=== PATIENT | male | born 1950 ===

== ENCOUNTER 2021-08-27 20:43 | Inpatient (IN) | payer BC ==
--- OUTSIDE RECORDS SUMMARY | 2021-08-27 20:46 | XMS REPORT | Continuity of Care Document ---
:1950 Author Organization [facility] t Address [address] [place] [address] Care Team Providers Name Role Phone JENNYFER TOY Primary Care Physician Unavailable BARBY GARSIA Attending Clinician Unavailable AMERICA Attending Clinician Unavailable Safia Kennedy Attending Clinician Doctor Unassigned, Name Attending Clinician Unavailable Payers Payer Name Policy Type Policy Number Effective Date Expiration Date S ource Problems Condition Condition Condition Status Onset Resolution Last Treating Co mments Source Name Details Category Date Date Treatment Clinician Date Obesity Obesity Disease Active Overview: Univ ers 18 Formattin ity of 00:00: g of this [place] 00 note Medical might be Branch different from the original. 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 Utility Allergies, Adverse Reactions, Alerts Allergy Allergy Status Severity Reaction(s) Onset Inactive Treating Comm ents Source Name Type Date Date Clinician NO KNOWN Drug Active Univers ALLERGIE Class ity of S [place] [facility] [place] Social History Social Habit Start Date Stop Date Quantity Comments Source Exposure to Not sure [facility] SARS-CoV-2 (event) Medica l Branch Sex Assigned At [birth year] [facility] 00:00:00 00:00:00 Medical Branch Smoking Status Start Date Stop Date Source Unknown if ever smoked [facility] Medical [place] Medications Ordered Filled Start Stop Current Ordering Indication Dosage Frequency Signature Comments Components Source Medication Medication Date Date Medication? Clinician (SIG) Name Name tamsulosin 2020-06 Yes [id number] .4mg Take 1 Univers 0.4 mg 24 06-22 capsule by ity of hr capsule 00:00: mouth at [place] 00 bedtime. Medical Branch tamsulosin 2020-06 Yes [id number] .4mg Take 1 Univers 0.4 mg 24 06-22 capsule by ity of hr capsule 00:00: mouth at [place] 00 bedtime. Medical Branch tamsulosin Yes [id number] .4mg Take 1 Univers 0.4 mg 24 -05 12 capsule by ity of hr capsule 00:00: mouth [place] 00 daily. Medical Branch tamsulosin Yes [id number] .4mg Take 1 Univers 0.4 mg 24 10-21 capsule by ity of hr capsule 00:00: mouth [place] 00 daily. Medical Branch ACIPHEX Yes None Univers ORAL 2-08 Entered ity of 15:25: [place] [address] Medical Branch LEXAPRO Yes None Univers ORAL 2-08 Entered ity of 15:25: [place] [address] Medical Branch ALPRAZolam Yes .5mg Take 0.5 Uni vers 0.5 mg 2-08 mg by ity of tablet 15:25: mouth. [place] [address] Medical Branch desvenlafax Yes Take by Un ryan ine 2-08 mouth. ity of succinate 15:25: [place] 50 mg 24 hr 16 Medical tablet Branch lithium Yes 300mg Take 300 Unive rs carbonate 2-08 mg by ity of 300 mg 15:25: mouth. [place] [address] Medical Branch memantine Yes 10mg Take 10 mg Un ryan 10 mg 2-08 by mouth. ity of tablet 15:25: [place] [address] Medical Branch ACIPHEX Yes None Univers ORAL 2-08 Entered ity of 15:25: [place] [address] Medical Branch LEXAPRO Yes None Univers ORAL 2-08 Entered ity of 15:25: [place] [address] Medical Branch ALPRAZolam Yes .5mg Take 0.5 Uni vers 0.5 mg 2-08 mg by ity of tablet 15:25: mouth. [place] [address] Medical Branch desvenlafax Yes Take by Un ryan ine 2-08 mouth. ity of succinate 15:25: [place] 50 mg 24 hr 16 Medical tablet Branch lithium Yes 300mg Take 300 Unive rs carbonate 2-08 mg by ity of 300 mg 15:25: mouth. [facility] 16 Medical Branch memantine Yes 10mg Take 10 mg Un ryan 10 mg 2-08 by mouth. ity of tablet 15:25: 16 Medical Branch tamsulosin Yes [id number] .4mg Take 1 Univers 0.4 mg 24 2-08 capsule by ity of hr capsule 00:00: mouth at [place] 00 bedtime. Medical Branch tamsulosin Yes [id number] .4mg Take 1 Univers 0.4 mg 24 2-08 capsule by ity of hr capsule 00:00: mouth at [place] 00 bedtime. Medical Branch tamsulosin 2019- Yes [id number] .4mg Take 1 Univers 0.4 mg 24 2-28 01 capsule by ity of hr capsule 00:00: mouth [place] 00 daily. Medical Branch SYNTHROID 2019- Yes Univers 25 mcg 2-28 ity of tablet 00:00: 00 Medical Branch atorvastati 2019- Yes Univer s n 20 mg 2-28 ity of tablet 00:00: Medical Branch tamsulosin 2019- Yes [id number] .4mg Take 1 Univers 0.4 mg 24 2-28 01 capsule by ity of hr capsule 00:00: mouth [place] 00 daily. Medical Branch SYNTHROID 2019- Yes Univers 25 mcg 2-28 ity of tablet 00:00: Medical Branch atorvastati 2019- Yes Univer s n 20 mg 2-28 ity of tablet 00:00: 00 Medical Branch bisoprolol 2020- Yes Univers 5 mg tablet 1-20 ity of 00:00: Medical Branch bisoprolol 2019- Yes Univers 5 mg tablet 1-20 ity of 00:00: [place] 00 Medical Branch HYDROCODONE 2007-0 Yes 15 mL Oral Univers -ACETAMINOP 2-20 Q4HPRN ity of HEN 2.5-167 00:00: [place] MG/5 ML 00 Medical ORAL SOLN Branch HYDROCODONE 2007-0 Yes 15 mL Oral Univers -ACETAMINOP 2-20 Q4HPRN ity of HEN 2.5-167 00:00: [place] MG/5 ML 00 Medical ORAL SOLN Branch Vital Signs Vital Name Observation Time Observation Value Comments Source Systolic blood 2021-04-21 19:20:00 143 mm[Hg] Univer sity of pressure [facility] Diastolic blood 2021-04-21 19:20:00 88 mm[Hg] [facility] Heart rate 2021-04-21 19:20:00 68 /min [facility] Body temperature 2021-04-21 19:19:00 36 [facility] Respiratory rate 2021-04-21 19:19:00 16 /min [facility] Body weight 2021-04-21 19:19:00 108.954 kg [facility] BMI 2021-04-21 19:19:00 36.52 kg/m2 [facility] Oxygen saturation in 2021-04-21 19:19:00 99 /min [facility] Arterial blood by [facility] Pulse oximetry Branch Procedures Procedure Date / Time Performed Performing Clinician Sourc e POCT URINALYSIS AUTO 2021-04-21 19:22:00 Barby Garsia [facility] PATIENT QUESTIONNAIRE 2021-04-21 06:01:00 Doctor Unassigned, No [facility] Encounters Start End Encounter Admission Attending Care Care Encounter Source Date/Time Date/Time Type Type Clinicians Facility Department ID 2021-10-20 2021-10-20 Outpatient R ADY [facility] [id number] Univers 10:30:00 10:30:00 BARBY [id number] [facility] 2021-10-18 2021-10-18 Outpatient R AMERICA [facility] [id number] Univers 14:00:00 14:00:00 CAR [id number] [facility] 2021-04-21 2021-04-21 Office Gramm, [facility] [id number] Univers 12:54:40 13:39:26 Visit Barby QUEZADA [id number] ity of [facility] [id number] [place] [id number] Ne dical NAL 204 Branch BUILDING 2021-04-21 2021-04-21 Orders Doctor ARIE [id number] Univers 00:00:00 00:00:00 Only Unassigned, RED [id number] ity of [place] [facility] [id number] [place] [phone] [facility] 009 [place] Results Test Description Test Time Test Comments Results Result Comments Source POCT URINALYSIS, INSTRUMENT 2021-04-21 19:23:00 Test Item Value Reference Range Interpretation Comme nts POCT U SP GRAV (test code = 3255) 1.020 mg/dl 1.005-1.025 POCT PH U (test code = 3254) 7.0 mg/dl 5-8 POCT U LEUK EST (test code = 3263) Negative Negative - Negative POCT U NIT (test code = 3262) Negative Negative - Negative POCT U PROT (test code = 3259) Negative Negative - Negative POCT U GLU (test code = 3256) Negative Negative - Negative POCT U KETONE (test code = 3258) Negative Negative - Negative POCT U UROBILI (test code = 3260) 1.0 mg/dl 0.2-1 POCT U BILI (test code = 3261) Negative Negative - Negative POCT U BLD (test code = 3257) Negative Negative - Negative POCT U COLOR (test code = 3266) Yellow POCT U APPEAR (test code = 3267) Clear Lab Interpretation (test code = 75043-9) Normal [facility]
[2021-08-27] MEDS ORDERED: NA CHLORIDE 0.9% 2,000 ML ONE (21:24)
[2021-08-27 21:36] LABS: Absolute Lymphocytes (CBC) 0.2 K/uL (0.7-4.9); Hematocrit 41.3 % (39.6-49.0); Lymphocytes % 7.3 % (15.3-44.8); MPV 7.7 fL (7.6-11.3); RBC Red Blood Cell Count 4.59 M/uL (4.33-5.43)
[2021-08-27] MEDS ORDERED: NA CHLORIDE 0.9% 50 ML ONE (21:36)
[2021-08-27] MEDS ORDERED: VANCOMYCIN 1 GM/VIAL ONE (21:36)
[2021-08-27] MEDS ORDERED: CEFTRIAXONE 1000 MG/VIAL ONE (21:36)
[2021-08-27] MEDS ORDERED: NA CHLORIDE 0.9% 250 ML ONE (21:36)
[2021-08-27 21:39] LABS: Protime INR 1.52
[2021-08-27 21:45] LABS: Potassium 3.4 mmol/L (3.5-5.1)
[2021-08-27 21:59] LABS: Albumin 2.6 g/dL (3.4-5.0); Bilirubin Total 1.5 mg/dL (0.2-1.0); Potassium 3.4 mmol/L (3.5-5.1); Protein, Total 6.2 g/dL (6.4-8.2)
[2021-08-27 22:00] LABS: Platelet Estimate DECR; Platelets, Giant OCC
[2021-08-27 22:01] LABS: Blood Morphology Comment NOT SEEN (NOT SEEN)
--- NOTE | 2021-08-27 22:10 | RAD REPORT ---
EXAM DESCRIPTION: RAD - Chest Single View - 08/27/2021 9:45 pm CLINICAL HISTORY: CHEST PAIN Chest pain. COMPARISON: CHEST PA AND LAT 2 VIEW dated 10/03/2012; CHEST PA AND LAT 2 VIEW dated 09/28/2004 FINDINGS: Portable technique limits examination quality. Elevated right hemidiaphragm is noted without clear etiology. The lungs are underinflated which resul ts in vascular crowding. The heart is normal in size. No displaced fractures.
[2021-08-27] MEDS ORDERED: NA CHLORIDE 0.9% 1,000 ML ONE (22:51)
[2021-08-27] MEDS ORDERED: NOREPINEPHRINE 4mg/D5W 250mL 4 MG/250 ML BAG IV ONE (23:24)
[2021-08-28 00:06] LABS: SARS-COV-2 RT PCR NEGATIVE (NEGATIVE)
[2021-08-28] MEDS ORDERED: NOREPINEPHRINE 4mg/D5W 250mL 4 MG/250 ML BAG IV ONE ×4 (01:56→11:07)
[2021-08-28 03:45] LABS: Urine Blood Negative (Negative); Urine Glucose Negative (Negative); Urine Protein 1+ (Negative)
[2021-08-28] MEDS ORDERED: NOREPINEPHRINE 4 MG/4 ML VIAL ONE (03:56)
[2021-08-28] MEDS ORDERED: D5W 250 ML IV ONE (03:56)
[2021-08-28 03:59] LABS: Urine Bacteria 20-50 /HPF (NONE SEEN); Urine Mucus 3+ /HPF (NONE SEEN); Urine RBC <5 /HPF (NONE SEEN)
--- NOTE | 2021-08-28 04:16 | ER ---
Nurse's Notes [facility] Name: Bhargav Lim Age: 71 yrs Sex: Male : 1950 Arrival Date: 08/27/2021 Time: 20:48 Bed 4 Private MD: Diagnosis: Severe sepsis with septic shock Presentation: 08/27 21:09 Chief complaint: EMS states: EMS toned out for acute onset of stuttering of speech, ll3 states pt fell and hit head last night, denies LOC, c/o nausea and generalized weakness, denies V/D, states been unable to eat all day. Coronavirus screen: Vaccine status: Patient reports receiving the 2nd dose of the covid vaccine. At this time, the client does not indicate any symptoms associated with coronavirus-19. Ebola Screen: No symptoms or risks identified at this time. Initial Sepsis Screen: Does the patient meet any 2 criteria? RR > 20 per min. Systolic BP < 90 mmHg. HR > 90 bpm. Yes Does the patient have a suspected source of infection? No. Patient's initial sepsis screen is negative. Risk Assessment: Do you want to hurt yourself or someone else? Patient reports no desire to harm self or others. Onset of symptoms was August 27, 2021. Transition of care: patient was not received from another setting of care. 21:09 Method Of Arrival: EMS: [facility] 3 21:09 Acuity: DIANNA 3 ll3 21:29 Care prior to arrival: Medication(s) given: Normal saline infusion, 75 ml zofran 4 mg, ll3 Glucose check: 102 Oxygen administered. via nasal cannula. Triage Assessment: 21:29 General: Appears uncomfortable, Behavior is calm, cooperative. Pain: Denies pain. ll3 Neuro: Level of Consciousness is awake, alert, obeys commands, Oriented to person, place, time, situation, Metal Refiner are equal bilaterally Speech Stuttering . Facial symmetry appears normal, Reports weakness. Cardiovascular: Rhythm is sinus rhythm Chest pain is denied. Respiratory: Respiratory effort is even, unlabored, Respiratory pattern is tachypnea. GI: Reports intolerance of fluids, intolerance of food, nausea, Patient currently denies diarrhea, vomiting. Derm: Skin is diaphoretic, Skin temperature is warm. Historical: - Allergies: 21:29 No Known Allergies; ll3 - Home Meds: 21:36 atorvastatin 20 mg oral tab 1 tab once daily [Active]; memantine 28 mg oral CSpX ll3 [Active]; levothyroxine 25 mcg oral tab 1 tab every morning [Active]; Zyprexa 10 mg Oral tab 1 tab nightly [Active]; desvenlafaxine succinate 100 mg oral Tb24 1 tab once daily [Active]; bisoprolol fumarate 5 mg oral tab [Active]; tamsulosin 0.4 mg oral cap 1 cap nightly [Active]; Vyvanse 40 mg oral cap [Active]; pantoprazole 40 mg oral grps 1 tab [Active]; - Immunization history:: Client reports receiving the 2nd dose of the Covid vaccine. - Social history:: Smoking status: Patient reports the use of cigarette tobacco products, denies chronic smoking, but will smoke occasionally. Screenin:29 Abuse screen: Denies threats or abuse. Nutritional screening: No deficits noted. st1 Tuberculosis screening: No symptoms or risk factors identified. Fall Risk None identified. Fall in past 12 months (25 points). No secondary diagnosis (0 pts). IV access (20 points). Ambulatory Aid- None/Bed Rest/Nurse Assist (0 pts). Gait- Weak (10 pts.). Mental Status- Oriented to own ability (0 pts). Total Cazares Fall Scale indicates High Risk Score (45 or more points). Fall prevention measures have been instituted. Side Rails Up X 2 Placed Close to Nursing Station Frequent Obs/Assessments Occuring Family Present and informed to notify staff if the need to leave the bedside As available patient and family educated on Fall Prevention Program and Strategies. Assessment: 21:30 Reassessment: please see triage assessment. st1 22:45 Reassessment: Patient and/or family updated on plan of care and expected duration. Pain ll3 level reassessed. Patient is alert, oriented x 3, equal unlabored respirations, skin warm/dry/pink. Pt is awake and alert in bed talking with , blood pressure is 59/40, pt denies being lightheaded or dizzy, Dano Page at bedside discussing with pt and family need for central line. Patient denies pain at this time. 23:00 Reassessment: SERGE Herman at bedside inserting central line, tolerated well. ll3 08/28 10:24 Reassessment: 16fr villagomez was place by Huey BUSBY at 0700. monitors villagomez output and rosas notice increase blood clots and no urine output. villagomez was change out and about 200ml bloody urine output no visible blood clots. will continue to monitor. 20:24 General: Patient found confused and attemping to crawl out of bed yelling " someone tw5 help me." One IV had become dislodged. Patient reoriented and calmed. Patient placed in brief, monitoring wires reorganized for patient comfort. Patient repositioned in bed. . General: Behavior is cooperative, anxious, restless, Reports "I am sorry, I know where I am now, thank you for helping me. I know what I did wrong.". Pain: Pain currently is 0 out of 10 on a pain scale. 20:48 General: Attempted to Call Dr. Starkey. Left a message to have him call back. tw5 21:21 Neuro: Level of Consciousness is awake, confused, Oriented to person, place. GI: Stools tw5 are reported to be loose, Patient confused and reaching over. Found with feces on his hands. Patient was cleaned up by two RNs. Patient reoriented, and repositioned for comfort. Complete linen changed. 21:45 General: Attempted to Dr. Starkey again. Left another message. tw5 22:15 General: Patient appears pale and clammy. Patient reports "I just had another bowel tw5 movement, and I am feeling nauseous.". 23:11 Derm: Skin is mottled. tw5 23:26 General: Patient had another bowel movement. Feces all over monitoring cords. Patient tw5 cleaned up. Linen changed. Patient reports nausea and diarrhea. . 08/29 00:15 General: Attempted to call Dr. Ricks . tw5 00:30 General: Spoke to Gutierrez on the phone updated provider of patients status. Provider tw5 stated he would like the patient intubated if Dr. Greene the ER doctor would be willing to intubate the patient. Further instructions will be provided in [facility].. 00:31 General: Patient yelling out ' SOMEONE HELP ME, I FEEL LIKE I AM GOING TO "!. tw5 00:53 Respiratory: Airway is patent Trachea midline Respiratory effort is labored. tw5 00:57 Neuro: Level of Consciousness is confused, Oriented to. tw5 01:04 General: Spoke to Provider- Dr. Greene suggested that intubation wasn't needed at this tw5 time. ABG obtained. Reading relayed to Dr. Whitley. . 01:36 General: Behavior is agitated, anxious, restless, Patient attemping to crawl out of tw5 bed. Ciaio Lumite Injector at the bedside assisting with patient. . 02:01 General: Juliette called again. nursing staff strongly suggested that she come up here to tw5 see her . . 02:54 General: Behavior is agitated, anxious, restless. Pain: Complains of pain in abdomen tw5 Pain currently is 8 out of 10 on a pain scale. 03:00 General: Juliette the is at the bedside she stated " I just want him to be tw5 comfortable." She further stated she didn't want him to be intubated or for CPR. . 04:11 General: Behavior is agitated, anxious, restless, at the bedside.. Cardiovascular: tw5 Rhythm is sinus tachycardia. Respiratory: Respiratory effort is labored. 05:32 General: Behavior is agitated, anxious, restless, Patient cleaned of incontinence. tw5 Verbal reassurance given to and patient. . 05:32 Neuro: Level of Consciousness is confused, Oriented to none. tw5 06:44 General: Behavior is agitated, anxious, restless, uncooperative, Patient cleaned of tw5 incontinence. Repositioned. 10:06 Reassessment: pt spouse requested no antibiotics, spoke with Primary doc and decided on rosas DNR and hospice. spoke with Dr. Strong to decrease Sodium Bicarb to 100ml/hr, haldol 4mg Q\\T\\H PRN. stop nor-epi and vasopressin. Vital Signs: 08/27 21:09 BP 76 / 55; Pulse 100; Resp 24; Temp 99.4(O); Pulse Ox 92% on R/A; Weight 101.15 kg ll3 (R); Height 5 ft. 10 in. (177.80 cm) (R); Pain 0/10; 21:15 BP 68 / 36; Pulse 93; Resp 27; Pulse Ox 93% on 2 lpm NC; ll3 21:30 BP 59 / 50; Pulse 87; Resp 28; Pulse Ox 91% on 2 lpm NC; ll3 21:45 BP 60 / 46; Pulse 87; Resp 26; Pulse Ox 95% on 2 lpm NC; ll3 22:00 BP 60 / 48; Pulse 90; Resp 28; Pulse Ox 96% on 2 lpm NC; ll3 22:15 BP 54 / 41; Pulse 88; Resp 22; Pulse Ox 97% on 2 lpm NC; ll3 22:30 BP 48 / 37; Pulse 87; Resp 23; Pulse Ox 96% on 2 lpm NC; ll3 22:45 BP 59 / 40; Pulse 85; Resp 23; Pulse Ox 96% on 2 lpm NC; ll3 23:00 BP 57 / 36; Pulse 89; Resp 26; Pulse Ox 96% on 2 lpm NC; ll3 23:15 BP 59 / 46; Pulse 85; Resp 26; Pulse Ox 97% on 2 lpm NC; ll3 23:30 BP 63 / 49; Pulse 84; Resp 25; Pulse Ox 98% on 2 lpm NC; ll3 23:45 BP 91 / 73; Pulse 74; Resp 25; Pulse Ox 99% on 2 lpm NC; ll3 08/28 00:00 BP 59 / 34; Pulse 66; Resp 21; Pulse Ox 98% on 2 lpm NC; ll3 00:15 BP 74 / 49; Pulse 87; Resp 25; Pulse Ox 98% on 2 lpm NC; ll3 00:30 BP 75 / 61; Pulse 90; Resp 27; Pulse Ox 98% on 2 lpm NC; ll3 00:45 BP 79 / 66; Pulse 86; Resp 23; Pulse Ox 99% on 2 lpm NC; ll3 01:00 BP 82 / 56; Pulse 89; Resp 25; Pulse Ox 99% on 2 lpm NC; ll3 01:20 BP 101 / 57; Pulse 87; Resp 26; Pulse Ox 98% on 2 lpm NC; ll3 08:01 BP 95 / 76; Pulse 88; Resp 18; Pulse Ox 97% on 4 lpm NC; rosas 08:28 BP 95 / 83; Pulse 86; Resp 19; Pulse Ox 96% on 4 lpm NC; rosas 08:50 BP 96 / 80; Pulse 84; Resp 18; Pulse Ox 97% on 4 lpm NC; rosas 09:50 BP 115 / 83; Pulse 78; Resp 19; Pulse Ox 96% on 4 lpm NC; rosas 10:34 BP 106 / 89; Pulse 90; Resp 19; Pulse Ox 97% on 4 lpm NC; rosas 11:01 BP 96 / 51; Pulse 90; Resp 20; Pulse Ox 94% on 4 lpm NC; rosas 12:00 BP 77 / 62; Pulse 92; Resp 20; Pulse Ox 94% on 4 lpm NC; rosas 13:00 BP 79 / 65; Pulse 90; Resp 20; Pulse Ox 96% on 4 lpm NC; rosas 15:03 BP 103 / 66; Pulse 88; Resp 22; Pulse Ox 92% on 4 lpm NC; rosas 16:23 BP 107 / 75; Pulse 88; Resp 19; Pulse Ox 98% on 3 lpm NC; rosas 18:08 BP 76 / 54; Pulse 79; Resp 20; Pulse Ox 99% on 3 lpm NC; rosas 18:09 BP 82 / 66; rosas 20:24 BP 137 / 96; Pulse 95; Resp 33; Pulse Ox 94% on 4 lpm NC; tw5 20:33 BP 104 / 66; Pulse 84; Resp 33; Pulse Ox 100% on R/A; tw5 20:49 BP 94 / 62; tw5 20:53 BP 94 / 92; Pulse 82; Resp 34; Pulse Ox 96% on 3 lpm NC; tw5 21:21 BP 73 / 58; Pulse 82; Resp 18; tw5 21:38 BP 73 / 58; tw5 22:16 BP 98 / 65; Pulse 81; Pulse Ox 86% on 3 lpm NC; tw5 23:26 BP 87 / 64; Pulse 69; Resp 24; Pulse Ox 97% on 15% Non-rebreather mask; tw5 23:28 BP 87 / 64; tw5 23:56 BP 48 / 34; tw5 23:57 BP 48 / 34; tw5 08/29 00:14 BP 119 / 94; Pulse 77; tw5 00:53 BP 66 / 25; Pulse 67; Resp 26; Pulse Ox 92% on 6 lpm NC; tw5 01:36 BP 109 / 91; Pulse 123; tw5 01:45 BP 99 / 87; Pulse 128; tw5 02:33 BP 152 / 121; Pulse 137; Resp 24; Pulse Ox 92% on 6 lpm NC; tw5 02:36 BP 152 / 121; tw5 02:55 BP 157 / 115; Pulse 143; Resp 26; Pulse Ox 96% on 96% Venturi mask; tw5 03:35 BP 170 / 129; tw5 03:35 BP 170 / 129; tw5 04:11 BP 149 / 98; Pulse 130; Resp 28; Pulse Ox 95% on 50% Venturi mask; tw5 05:32 BP 153 / 91; Pulse 138; Resp 30; Pulse Ox 95% on 50% Venturi mask; tw5 06:44 BP 146 / 79; Pulse 141; Resp 30; Pulse Ox 92% on 50% Venturi mask; tw5 07:00 BP 157 / 76; Pulse 137; Resp 22; Pulse Ox 97% on Venturi mask; rosas 07:40 BP 164 / 101; Pulse 135; Resp 22; Pulse Ox 98% on Venturi mask; rosas 08:20 BP 98 / 74; Pulse 114; Resp 20; Pulse Ox 97% on Venturi mask; rosas 08:20 BP 133 / 74; Pulse 130; Resp 22; Pulse Ox 98% on Venturi mask; rosas 09:21 BP 145 / 100; Pulse 124; Resp 20; Pulse Ox 98% on Venturi mask; rosas 10:20 BP 137 / 87; Pulse 132; Resp 22; Pulse Ox 95% ; rosas 11:00 BP 176 / 118; Pulse 135; Resp 20; Pulse Ox 96% on Venturi mask; rosas 12:00 BP 123 / 88; Pulse 122; Resp 20; Pulse Ox 96% on Venturi mask; rosas 08/27 21:09 Body Mass Index 32.00 (101.15 kg, 177.80 cm) ll3 08/28 22:16 Upped NC to 5 L, Oxygen reached 90 tw5 08/29 00:14 Unable to obtain an accurate pulse ox. Derrick WATT at the bedside assisting. tw5 ED Course: 08/27 20:48 Patient arrived in ED. mw2 20:54 Maikol Guillen MD is Attending Physician. kdr 21:17 Tammy Westbrook, QI is Primary Nurse. st1 21:17 CBC with Automated Diff Sent. st1 21:17 Basic Metabolic Panel Sent. st1 21:17 Troponin High Sensitivity Sent. st1 21:17 Basic Metabolic Panel Sent. st1 21:17 CBC with Diff Sent. st1 21:17 Troponin HS Sent. st1 21:18 Triage completed. ll3 21:18 Lactate Sent. st1 21:18 CMP Sent. st1 21:18 Inserted saline lock: 20 gauge in right forearm, using aseptic technique. Blood st1 collected. 21:29 Maintain EMS IV. Dressing intact. Good blood return noted. Site clean \\T\\ dry. Gauge \\T\\ st 1 site: 18 ga left hand. 21:29 Arm band placed on right wrist. Patient placed in an exam room, on a stretcher, on ll3 oxygen, on pvc monitor, on pulse oximetry. EKG completed in triage. Results shown to MD. 21:30 No provider procedures requiring assistance completed. st1 21:30 Blood Culture Adult (2) Sent. st1 21:30 CMP Sent. st1 21:30 Patient has correct armband on for positive identification. Placed in gown. Bed in low st1 position. Call light in reach. Side rails up X2. monitor technician on. Pulse ox on. NIBP on. Door closed. Verbal reassurance given. Head of bed elevated. 21:31 Lactate Sent. st1 21:31 Protime (+inr) Sent. st1 21:31 Ptt, Activated Sent. st1 21:31 XRAY Chest (1 view) Sent. st1 21:45 XRAY Chest (1 view) In Process Unspecified. EDMS 23:23 Assisted provider with central line placement. Dressed with Tegaderm, Patient tolerated ll3 well. Initial lab(s) drawn, by ED staff, sent to lab. First set of blood cultures drawn Second set of blood cultures drawn EKG done, COVID swab sent to lab. 08/28 02:20 Head C Spine Cap Wo Con In Process Unspecified. EDMS 04:15 Prince Cristobal MD is Hospitalizing Provider. kdr 05:23 Isaac Starkey MD is Hospitalizing Provider. kdr 08/29 00:58 Primary Nurse role handed off by Tammy Westbrook RN tw5 00:58 Gina Abdalla is Primary Nurse. tw5 05:32 Wound care: to abrasion, located on left elbow was dressed with Neosporin, band aid. tw5 Administered Medications: 08/27 21:00 Drug: NS 0.9% (30 ml/kg) 30 ml/kg Route: IV; Rate: bolus; Site: right antecubital; ll3 08/28 00:45 Follow up: IV Status: Completed infusion; IV Intake: 3034.5ml st1 08/27 21:35 Drug: Rocephin - (cefTRIAXone) 1 grams Route: IVPB; Infused Over: 30 mins; Site: left st1 hand; 22:00 Follow up: Response: No adverse reaction; IV Intake: 50ml st1 08/28 08:49 Follow up: IV Status: Completed infusion 08/27 21:42 Drug: vancoMYCIN 1 grams Route: IVPB; Infused Over: 2 hrs; Site: right forearm; st1 23:00 Follow up: Response: No adverse reaction; IV Intake: 250ml st1 08/28 08:49 Follow up: IV Status: Completed infusion 08/27 23:27 Drug: Levophed (norepinephrine) (4 mg/250 mL D5W 4 mcg/min {Note: right groin central st1 line .} Route: IV; Rate: calculated rate; Site: right femoral; 08/28 08:49 Follow up: IV Status: Completed infusion 04:28 Drug: Flagyl (metroNIDAZOLE) 500 mg Volume: 100 ml; Route: IVPB; Rate: 200 ml/hr; al4 Infused Over: 30 mins; Site: left hand; 04:58 Follow up: Response: No adverse reaction; IV Status: Completed infusion; IV Intake: al4 100ml 07:51 Follow up: IV Status: Completed infusion 08:01 Drug: NS 0.9% 1000 ml Route: IV; Rate: 200 ml/hr; Site: Other; 20:28 Follow up: Response: No adverse reaction; IV Status: Completed infusion; IV Intake: tw5 1000ml 08:48 Drug: Norepinephrine (4 mg/250 mL D5W) 4 mcg/min Route: IV; Rate: calculated rate; Site: Other; 11:13 Follow up: IV Status: Completed infusion 23:56 Follow up: Rate change 6 mcg/min tw5 11:11 Drug: Norepinephrine (4 mg/250 mL D5W) 4 mcg/min Route: IV; Rate: calculated rate; Site: Other; 20:28 Follow up: IV Status: Order to discontinue infusion; No currently running tw5 21:38 Follow up: BP 73 / 58; Rate change 2 mcg/min tw5 23:28 Follow up: BP 87 / 64; Rate change 4 mcg/min tw5 08/29 00:52 Follow up: Rate change 10 mcg/min tw5 03:35 Follow up: BP 170 / 129; placed on hold tw08/28 14:04 Drug: Vasopressin 0.02 units/min Route: IV; Rate: calculated rate; Site: Other; 20:27 Follow up: Rate change calculated rate; Infusion on hold due to vitals 20:49 Follow up: BP 94 / 62; Rate change 0.04 units/min 5 20:49 Follow up: Rate change 0.02 units/min 23:56 Follow up: BP 48 / 34; Rate change 0.04 units/min 20 00:52 Follow up: Rate change 0.05 units/min 02:36 Follow up: BP 152 / 121; currently on hold 03:35 Follow up: BP 170 / 129; Placed on hold 00:49 Drug: SOLU-Medrol (methylPrednisoLONE) 200 mg Route: IVP; Site: left hand; 03:35 Follow up: Response: No adverse reaction Point of Care Testing: Blood Glucose: 08/27 21:29 Blood Glucose: 107 mg/dL; ll3 Ranges: Intake: 22:00 IV: 50ml; Total: 50ml. st1 23:00 IV: 250ml; Total: 300ml. st1 08/28 00:45 IV: 3035ml; Total: 3335ml. st1 04:58 IV: 100ml; Total: 3435ml. al4 20:28 IV: 1000ml; Total: 4435ml. Outcome: 04:16 Decision to Hospitalize by Provider. kdr 08/29 15:48 Patient left the ED. ic1 Signatures: Dispatcher [employer] EDMS Maikol Guillen MD MD [facility] Franky Nesbitt Gina Gottlieb tw5 Huey Macedo RN RN ll3 Jethro Burgos al4 Laura Garcia RN RN ha Creggett, Iesha, RN RN ic1 Tammy Westbrook RN RN st1 Corrections: (The following items were deleted from the chart) 08/28 01:32 08/27 22:45 BP 59 / 40; Pulse 85bpm; Resp 23bpm; Pulse Ox 23% 2 lpm Nasal Cannula; ll3 ll3 08/28 04:58 04:58 Response: No adverse reaction; IV Status: Completed infusion al4 al4 08/29 05:34 05:32 Neuro: Level of Consciousness is confused, Oriented to Appropriate for age tw5 tw5 09:01 07:00 BP 157 / 76; Pulse 137bpm; Resp 22bpm; Pulse Ox 97% Non-rebreather mask; [facility] 09: 07:40 BP 164 / 101; Pulse 135bpm; Resp 22bpm; Pulse Ox 98% Non-rebreather mask; [facility] 09: 08:20 BP 133 / 74; Pulse 130bpm; Resp 22bpm; Pulse Ox 98% Non-rebreather mask; [facility] 09: 08:20 BP 98 / 74; Pulse 114bpm; Resp 20bpm; Pulse Ox 97% Non-rebreather mask; [facility]
--- NOTE | 2021-08-28 04:16 | EDPHYS ---
Physician Documentation [facility] Name: Bhargav Lim Age: 71 yrs Sex: Male : 1950 Arrival Date: 08/27/2021 Time: 20:48 Bed 4 Private MD: ED Physician Maikol Guillen HPI: 08/28 06:00 This 71 yrs old Male presents to ER via EMS with complaints of General Weakness. kdr 06:00 Altered mental status. kdr 06:03 Severity of symptoms: At their worst the symptoms were severe in the emergency kdr department the symptoms are unchanged. The patient has not experienced similar symptoms in the past. It is unknown whether or not the patient has recently seen a physician. Patient's states that she noted acute onset of change in speech pattern. She indicates that he is stuttering which he does not normally do. She also indicated that he fell and hit his head last night. She denies loss of consciousness. Is also reported to be generally nauseated and weak. Patient denies change in speech but states that he has been feeling poorly for the past day or so. He does recollect hitting his head but denies LOC.. Historical: - Allergies: 08/27 21:29 No Known Allergies; ll3 - Home Meds: 21:36 atorvastatin 20 mg oral tab 1 tab once daily [Active]; memantine 28 mg oral CSpX ll3 [Active]; levothyroxine 25 mcg oral tab 1 tab every morning [Active]; Zyprexa 10 mg Oral tab 1 tab nightly [Active]; desvenlafaxine succinate 100 mg oral Tb24 1 tab once daily [Active]; bisoprolol fumarate 5 mg oral tab [Active]; tamsulosin 0.4 mg oral cap 1 cap nightly [Active]; Vyvanse 40 mg oral cap [Active]; pantoprazole 40 mg oral grps 1 tab [Active]; - Immunization history:: Client reports receiving the 2nd dose of the Covid vaccine. - Social history:: Smoking status: Patient reports the use of cigarette tobacco products, denies chronic smoking, but will smoke occasionally. ROS: 08/28 06:03 Constitutional: Patient is a poor historian Eyes: Negative for injury, pain, redness, kdr and discharge, Neck: Negative for injury, pain, and swelling. Exam: 08/27 21:09 ECG was reviewed by the Attending Physician. kdr 08/28 06:03 Constitutional: This is a well developed, well nourished patient who is so,nolent, and kdr in mild distress. Head/Face: Normocephalic, atraumatic. Eyes: Pupils equal round and reactive to light, extra-ocular motions intact. Lids and lashes normal. Conjunctiva and sclera are non-icteric and not injected. Cornea within normal limits. Periorbital areas with no swelling, redness, or edema. Neck: Trachea midline, no thyromegaly or masses palpated, and no cervical lymphadenopathy. Supple, full range of motion without nuchal rigidity, or vertebral point tenderness. No Meningismus. Chest/axilla: Normal chest wall appearance and motion. Nontender with no deformity. No lesions are appreciated. Cardiovascular: Regular rate and rhythm with a normal S1 and S2. No gallops, murmurs, or rubs. Normal PMI, no JVD. No pulse deficits. Respiratory: Lungs have equal breath sounds bilaterally, clear to auscultation and percussion. No rales, rhonchi or wheezes noted. No increased work of breathing, no retractions or nasal flaring. Back: No spinal tenderness. No costovertebral tenderness. Full range of motion. Skin: Warm, dry with normal turgor. Normal color with no rashes, no lesions, and no evidence of cellulitis. MS/ Extremity: Pulses equal, no cyanosis. Neurovascular intact. Full, normal range of motion. Respiratory: Respiratory: the patient does not display signs of respiratory distress, Breath sounds: rales, that are mild, are scattered, stridor, is not appreciated, wheezing: is not appreciated. 06:03 Neuro: Orientation: Slow to respond but responds appropriately. kdr Vital Signs: 08/27 21:09 BP 76 / 55; Pulse 100; Resp 24; Temp 99.4(O); Pulse Ox 92% on R/A; Weight 101.15 kg ll3 (R); Height 5 ft. 10 in. (177.80 cm) (R); Pain 0/10; 21:15 BP 68 / 36; Pulse 93; Resp 27; Pulse Ox 93% on 2 lpm NC; ll3 21:30 BP 59 / 50; Pulse 87; Resp 28; Pulse Ox 91% on 2 lpm NC; ll3 21:45 BP 60 / 46; Pulse 87; Resp 26; Pulse Ox 95% on 2 lpm NC; ll3 22:00 BP 60 / 48; Pulse 90; Resp 28; Pulse Ox 96% on 2 lpm NC; ll3 22:15 BP 54 / 41; Pulse 88; Resp 22; Pulse Ox 97% on 2 lpm NC; ll3 22:30 BP 48 / 37; Pulse 87; Resp 23; Pulse Ox 96% on 2 lpm NC; ll3 22:45 BP 59 / 40; Pulse 85; Resp 23; Pulse Ox 96% on 2 lpm NC; ll3 23:00 BP 57 / 36; Pulse 89; Resp 26; Pulse Ox 96% on 2 lpm NC; ll3 23:15 BP 59 / 46; Pulse 85; Resp 26; Pulse Ox 97% on 2 lpm NC; ll3 23:30 BP 63 / 49; Pulse 84; Resp 25; Pulse Ox 98% on 2 lpm NC; ll3 23:45 BP 91 / 73; Pulse 74; Resp 25; Pulse Ox 99% on 2 lpm NC; ll3 03/19 00:00 BP 59 / 34; Pulse 66; Resp 21; Pulse Ox 98% on 2 lpm NC; ll3 00:15 BP 74 / 49; Pulse 87; Resp 25; Pulse Ox 98% on 2 lpm NC; ll3 00:30 BP 75 / 61; Pulse 90; Resp 27; Pulse Ox 98% on 2 lpm NC; ll3 00:45 BP 79 / 66; Pulse 86; Resp 23; Pulse Ox 99% on 2 lpm NC; ll3 01:00 BP 82 / 56; Pulse 89; Resp 25; Pulse Ox 99% on 2 lpm NC; ll3 01:20 BP 101 / 57; Pulse 87; Resp 26; Pulse Ox 98% on 2 lpm NC; ll3 08:01 BP 95 / 76; Pulse 88; Resp 18; Pulse Ox 97% on 4 lpm NC; rosas 08:28 BP 95 / 83; Pulse 86; Resp 19; Pulse Ox 96% on 4 lpm NC; rosas 08:50 BP 96 / 80; Pulse 84; Resp 18; Pulse Ox 97% on 4 lpm NC; rosas 09:50 BP 115 / 83; Pulse 78; Resp 19; Pulse Ox 96% on 4 lpm NC; rosas 10:34 BP 106 / 89; Pulse 90; Resp 19; Pulse Ox 97% on 4 lpm NC; rosas 11:01 BP 96 / 51; Pulse 90; Resp 20; Pulse Ox 94% on 4 lpm NC; rosas 12:00 BP 77 / 62; Pulse 92; Resp 20; Pulse Ox 94% on 4 lpm NC; rosas 13:00 BP 79 / 65; Pulse 90; Resp 20; Pulse Ox 96% on 4 lpm NC; rosas 15:03 BP 103 / 66; Pulse 88; Resp 22; Pulse Ox 92% on 4 lpm NC; rosas 16:23 BP 107 / 75; Pulse 88; Resp 19; Pulse Ox 98% on 3 lpm NC; rosas 18:08 BP 76 / 54; Pulse 79; Resp 20; Pulse Ox 99% on 3 lpm NC; rosas 18:09 BP 82 / 66; rosas 20:24 BP 137 / 96; Pulse 95; Resp 33; Pulse Ox 94% on 4 lpm NC; tw5 20:33 BP 104 / 66; Pulse 84; Resp 33; Pulse Ox 100% on R/A; tw5 20:49 BP 94 / 62; tw5 20:53 BP 94 / 92; Pulse 82; Resp 34; Pulse Ox 96% on 3 lpm NC; tw5 21:21 BP 73 / 58; Pulse 82; Resp 18; tw5 21:38 BP 73 / 58; tw5 22:16 BP 98 / 65; Pulse 81; Pulse Ox 86% on 3 lpm NC; tw5 23:26 BP 87 / 64; Pulse 69; Resp 24; Pulse Ox 97% on 15% Non-rebreather mask; tw5 23:28 BP 87 / 64; tw5 23:56 BP 48 / 34; tw5 23:57 BP 48 / 34; tw5 08/29 00:14 BP 119 / 94; Pulse 77; tw5 00:53 BP 66 / 25; Pulse 67; Resp 26; Pulse Ox 92% on 6 lpm NC; tw5 01:36 BP 109 / 91; Pulse 123; tw5 01:45 BP 99 / 87; Pulse 128; tw5 02:33 BP 152 / 121; Pulse 137; Resp 24; Pulse Ox 92% on 6 lpm NC; tw5 02:36 BP 152 / 121; tw5 02:55 BP 157 / 115; Pulse 143; Resp 26; Pulse Ox 96% on 96% Venturi mask; tw5 03:35 BP 170 / 129; tw5 03:35 BP 170 / 129; tw5 04:11 BP 149 / 98; Pulse 130; Resp 28; Pulse Ox 95% on 50% Venturi mask; tw5 05:32 BP 153 / 91; Pulse 138; Resp 30; Pulse Ox 95% on 50% Venturi mask; tw5 06:44 BP 146 / 79; Pulse 141; Resp 30; Pulse Ox 92% on 50% Venturi mask; tw5 07:00 BP 157 / 76; Pulse 137; Resp 22; Pulse Ox 97% on Venturi mask; rosas 07:40 BP 164 / 101; Pulse 135; Resp 22; Pulse Ox 98% on Venturi mask; rosas 08:20 BP 98 / 74; Pulse 114; Resp 20; Pulse Ox 97% on Venturi mask; rosas 08:20 BP 133 / 74; Pulse 130; Resp 22; Pulse Ox 98% on Venturi mask; rosas 09:21 BP 145 / 100; Pulse 124; Resp 20; Pulse Ox 98% on Venturi mask; rosas 10:20 BP 137 / 87; Pulse 132; Resp 22; Pulse Ox 95% ; rosas 11:00 BP 176 / 118; Pulse 135; Resp 20; Pulse Ox 96% on Venturi mask; rosas 12:00 BP 123 / 88; Pulse 122; Resp 20; Pulse Ox 96% on Venturi mask; rosas 08/27 21:09 Body Mass Index 32.00 (101.15 kg, 177.80 cm) ll3 08/28 22:16 Upped NC to 5 L, Oxygen reached 90 tw5 08/29 00:14 Unable to obtain an accurate pulse ox. Derrick WATT at the bedside assisting. tw5 Procedures: 08/27 23:00 Central Line: the site was prepped with Betadine, in sterile fashion, a triple lumen cp catheter was inserted, in the right femoral vein, in 1 attempts. placement was verified, by blood return, the site was dressed with using sterile technique, the patient tolerated the procedure, well. MDM: 08/28 00:19 ED course: Patient's blood pressure is slightly improved with a systolic now product kdr 74. His mental status is much improved. Patient awake alert and responding appropriately. Speech is improved. His is at bedside feels that he is much better than he was high on admission. It is currently at his max of 30 mics. Will consider alternate pressure support. Still awaiting CT. 04:16 Patient medically screened. kdr 04:16 Counseling: I had a detailed discussion with the patient and/or guardian regarding: the kdr historical points, exam findings, and any diagnostic results supporting the discharge/admit diagnosis, lab results. Physician consultation: Heladio Landry MD was called at 04:00, regarding admission, consult, patient's condition, and will see patient in unit, later today. 06:03 Data reviewed: vital signs, nurses notes, lab test result(s), radiologic studies. ED kdr course: The patient responded well to the interventions given. His mental status improved and no other complaints during his stay in the ED. 08/27 21:11 Order name: Basic Metabolic Panel [facility] 08/27 21:11 Order name: CBC with Diff kdr 08/27 21:11 Order name: Troponin HS kdr 08/27 21:12 Order name: Basic Metabolic Panel; Complete Time: 21:47 EDMS 08/27 21:12 Order name: Troponin High Sensitivity; Complete Time: 00:17 EDMS 08/27 21:12 Order name: CBC with Automated Diff; Complete Time: 00:17 EDMS 08/27 21:17 Order name: Blood Culture Adult (2) kdr 08/27 21:17 Order name: CMP; Complete Time: 23:00 [facility] 08/27 21:17 Order name: Lactate; Complete Time: 22:59 [facility] 08/27 21:17 Order name: Protime (+inr); Complete Time: 00:17 [facility] 08/27 21:17 Order name: Ptt, Activated; Complete Time: 00:17 kdr 08/27 21:36 Order name: Glucose, Ancillary Testing; Complete Time: 00:17 EDMS 08/27 21:38 Order name: Manual Differential; Complete Time: 00:17 EDMS 08/27 21:57 Order name: COVID-19/FLU A+B (Document "Date of Onset" if Symptomatic); Complete Time: la1 00:17 08/27 21:11 Order name: XRAY Chest (1 view); Complete Time: 00:17 [facility] 08/28 01:01 Order name: Lactate Sepsis 2 HR Follow-up; Complete Time: 01:58 EDMS 08/28 02:19 Order name: Head C Spine Cap Wo Con EDMS 08/28 02:33 Order name: Urine Microscopic Only; Complete Time: 04:01 la1 08/28 03:45 Order name: Urine Dipstick-Ancillary; Complete Time: 04:01 EDMS 08/28 04:01 Order name: Urine Culture EDMS 08/28 08:36 Order name: Gram Stain--Aerobic Bottle EDMS 08/28 08:36 Order name: Gram Stain--Anaerobic Bottle EDMS 08/28 08:37 Order name: Gram Stain--Aerobic Bottle EDMS 08/28 08:54 Order name: US Abdomen Complete eb 08/29 00:49 Order name: ABG Arterial Blood Gas EDMS 08/29 05:16 Order name: CBC with Automated Diff EDMS 08/29 05:30 Order name: Comprehensive Metabolic Panel EDMS 08/29 09:41 Order name: Manual Differential EDMS 08/27 21:11 Order name: EKG; Complete Time: 21:12 kdr 08/27 21:11 Order name: Cardiac monitoring; Complete Time: 21:17 kdr 08/27 21:11 Order name: EKG - Nurse/Tech; Complete Time: 21:17 kdr 08/27 21:11 Order name: IV Saline Lock; Complete Time: 21:17 kdr 08/27 21:11 Order name: Labs collected and sent; Complete Time: 21:17 kdr 08/27 21:11 Order name: O2 Per Protocol; Complete Time: 21:17 kdr 08/27 21:11 Order name: O2 Sat Monitoring; Complete Time: 21:17 kdr 08/27 21:17 Order name: Accucheck; Complete Time: 21:25 kdr 08/27 21:17 Order name: IV Saline Lock - Large Bore; Complete Time: 21:18 kdr 08/28 07:00 Order name: Allen; Complete Time: 07:18 ll3 08/28 11:51 Order name: US; Complete Time: 12:57 EDMS 08/29 09:29 Order name: RAD EDNY EC/18 21:09 Rate is 99 beats/min. Rhythm is regular, Normal Sinus Rhythm with No ectopy. QRS [place] kdr is Normal. [place] interval is normal. QRS interval is normal. QT interval is normal. Clinical impression: Normal ECG. Administered Medications: 21:00 Drug: NS 0.9% (30 ml/kg) 30 ml/kg Route: IV; Rate: bolus; Site: right antecubital; ll3 08/28 00:45 Follow up: IV Status: Completed infusion; IV Intake: 3034.5ml st1 08/27 21:35 Drug: Rocephin - (cefTRIAXone) 1 grams Route: IVPB; Infused Over: 30 mins; Site: left st1 hand; 22:00 Follow up: Response: No adverse reaction; IV Intake: 50ml st1 08/28 08:49 Follow up: IV Status: Completed infusion 08/27 21:42 Drug: vancoMYCIN 1 grams Route: IVPB; Infused Over: 2 hrs; Site: right forearm; st1 23:00 Follow up: Response: No adverse reaction; IV Intake: 250ml st1 08/28 08:49 Follow up: IV Status: Completed infusion 08/27 23:27 Drug: Levophed (norepinephrine) (4 mg/250 mL D5W 4 mcg/min {Note: right groin central st1 line .} Route: IV; Rate: calculated rate; Site: right femoral; 08/28 08:49 Follow up: IV Status: Completed infusion 04:28 Drug: Flagyl (metroNIDAZOLE) 500 mg Volume: 100 ml; Route: IVPB; Rate: 200 ml/hr; al4 Infused Over: 30 mins; Site: left hand; 04:58 Follow up: Response: No adverse reaction; IV Status: Completed infusion; IV Intake: al4 100ml 07:51 Follow up: IV Status: Completed infusion 08:01 Drug: NS 0.9% 1000 ml Route: IV; Rate: 200 ml/hr; Site: Other; 20:28 Follow up: Response: No adverse reaction; IV Status: Completed infusion; IV Intake: tw5 1000ml 08:48 Drug: Norepinephrine (4 mg/250 mL D5W) 4 mcg/min Route: IV; Rate: calculated rate; Site: Other; 11:13 Follow up: IV Status: Completed infusion rosas 23:56 Follow up: Rate change 6 mcg/min tw5 11:11 Drug: Norepinephrine (4 mg/250 mL D5W) 4 mcg/min Route: IV; Rate: calculated rate; Site: Other; 20:28 Follow up: IV Status: Order to discontinue infusion; No currently running tw5 21:38 Follow up: BP 73 / 58; Rate change 2 mcg/min tw5 23:28 Follow up: BP 87 / 64; Rate change 4 mcg/min 5 08/29 00:52 Follow up: Rate change 10 mcg/min 03:35 Follow up: BP 170 / 129; placed on hold 08/28 14:04 Drug: Vasopressin 0.02 units/min Route: IV; Rate: calculated rate; Site: Other; rosas 20:27 Follow up: Rate change calculated rate; Infusion on hold due to vitals 20:49 Follow up: BP 94 / 62; Rate change 0.04 units/min 20:49 Follow up: Rate change 0.02 units/min 5 23:56 Follow up: BP 48 / 34; Rate change 0.04 units/min 08/29 00:52 Follow up: Rate change 0.05 units/min 02:36 Follow up: BP 152 / 121; currently on hold 03:35 Follow up: BP 170 / 129; Placed on hold 00:49 Drug: SOLU-Medrol (methylPrednisoLONE) 200 mg Route: IVP; Site: left hand; 03:35 Follow up: Response: No adverse reaction Point of Care Testing: Blood Glucose: 08/27 21:29 Blood Glucose: 107 mg/dL; ll3 Ranges: Critical Glucose Levels:Adult <50 mg/dl or >400 mg/dl <40 mg/dl or >180 mg/dl Disposition: 08/28 06:03 Co-signature as Attending Physician, Maikol Guillen MD I agree with the assessment and kdr plan of care. Disposition Summary: 08/28/21 04:16 Hospitalization Ordered Hospitalization Status: Inpatient Admission kdr Condition: Serious kdr Problem: new kdr Symptoms: have improved kdr Bed/Room Type: Standard kdr Location: [facility] ER HOLD(08/28/21 04:42) eb1 Room Assignment: ERHOLD-(08/28/21 04:42) eb1 Provider: Isaac Starkey(08/28/21 05:23) kdr Diagnosis - Severe sepsis with septic shock kdr Forms: - Medication Reconciliation Form kdr - SBAR form kdr Signatures: Dispatcher [employer] EDMS Miakol Guillen MD MD kdr Dwayne Francis, [employer] PROFESSOR-C [employer] PROFESSOR-Cla1 Dano Ram PA PA cp Shayla Brown MD MD ma2 Celena Rawls RN RN eb1 Gina Abdalla tw5 Huey Macedo RN RN ll3 Jethro Burgos4 Laura Garcia RN RN rosas Tammy Westbrook, RN RN st1 Corrections: (The following items were deleted from the chart) 02:08/27 21:12 Head C Spine MPR Wo Con+CT.RAD.BRZ ordered. EDMS EDMS 08/28 02:08/27 23:09 Chest Abdomen Pelvis Wo Con+CT.RAD.BRZ ordered. EDMS EDMS 08/28 04:42 04:16 Intensive Care Unit kdr eb1 04:42 04:16 kdr eb1 05:23 04:16 Prince Susu kdr kdr
[2021-08-28] MEDS ORDERED: METRONIDAZOLE 500mg IVPB 500 MG/100 ML BAG IV ONE (04:24)
[2021-08-28] MEDS ORDERED: NA CHLORIDE 0.9% 1,000 ML ONE ×3 (07:55→19:32)
--- NOTE | 2021-08-28 10:05 | P.HP ---
Certification for Inpatient Patient admitted to: Inpatient With expected LOS: >2 Midnights Practitioner: I am a practitioner with admitting privileges, knowledge of patient current condition, hospital course, and medical plan of care. Services: Services provided to patient in accordance with Admission requirements found in Title 42 Section 412.3 of the Code of Federal Regulations Patient History Date of Service: 08/28/21 Reason for admission: FALLEN A FEW TIMES. FEVER. History of Present Illness: MR. ARREDONDO IS GM WITH LONGTERM PSYCH HISTORY AND GERD COMES WITH FALLS AND FE YIFAN. HE HAS NO PAIN. HE HAS SOME NAUSEA. Home medications list reviewed: Yes Review of Systems 10-point ROS is otherwise unremarkable General: Weakness, Malaise Physical Examination - Physical Exam General: Mild distress, Moderate distress, Obese HEENT: Atraumatic, PERRLA, Mucous membr. moist/pink, EOMI, Sclerae nonicteric Neck: Supple, 2+ carotid pulse no bruit, No LAD, Without JVD or thyroid abnormality Respiratory: Clear to auscultation bilaterally, Normal air movement Cardiovascular: Regular rate/rhythm, Normal S1 S2 Gastrointestinal: Normal bowel sounds, No tenderness Musculoskeletal: No tenderness Integumentary: No rashes Neurological: Normal gait, Normal speech, Normal strength at 5/5 x4 extr, Normal tone, Normal affect Lymphatics: No axilla or inguinal lymphadenopathy - Studies Laboratory Data (last 24 hrs) 08/27/21 21:22: PT 16.9 H, INR 1.52, APTT 31.8 08/27/21 21:22: Sodium 138, Potassium 3.4 L, BUN 19 H, Creatinine 1.89 H, Glucose 94, Total Bilirubin 1.5 H, AST 47 H, ALT 26, Alkaline Phosphatase 247 H 08/27/21 21:15: WBC 2.40 L, Hgb 14.1, Hct 41.3, Plt Count 148 L 08/27/21 21:15: Sodium 139, Potassium 3.4 L, BUN 18, Creatinine 1.88 H, Glucose 99 Microbiology Data (last 24 hrs): 08/27/21 21:28 Blood - Blood Anaerobic Blood Culture - Final Assessment and Plan - Problems (Diagnosis) (1) Septic shock Current Visit: Yes Status: Acute Plan: THIS MAY BE FROM ACUTE CHOLECYSTITIS. SONOGRAM ORDER. CONTINUE ZOSYN AND FLAGYL. STOP VANCOMYCIN FOR NOW- NO CLEAR INDICATION. DR MORALEZ AND DR HELLER CONSULTED. MEDICALLY NOT STABLE FOR SURGERY FOR NOW. KEEP OTHER ETIOLOGY IN MIND. BC-3 DONE - Advance Directives Does patient have a Living Will: Yes Does patient have a Durable POA for Healthcare: Yes
--- NOTE | 2021-08-28 10:22 | P.CNS ---
Date of Consult: 08/28/21 Reason for Consult: Hypotension Chief Complaint: FALLEN A FEW TIMES. FEVER. History of Present Illness: Patient is 71 years of age he has been sick for about a week has some nausea has been following. With severe hypotension eyes any shortness of breath chest pain no swelling mL abdominal complaints no tenderness or rebound - Past Medical/Surgical History -: Hypertension Review of Systems 10-point ROS is otherwise unremarkable General: Weakness Physical Examination General: Alert, In no apparent distress, Oriented x3 Respiratory: Clear to auscultation bilaterally, Normal air movement Cardiovascular: No edema, Regular rate/rhythm Gastrointestinal: Normal bowel sounds, Soft and benign Musculoskeletal: No clubbing, No swelling Laboratory Data (last 24 hrs) 08/27/21 21:22: PT 16.9 H, INR 1.52, APTT 31.8 08/27/21 21:22: Sodium 138, Potassium 3.4 L, BUN 19 H, Creatinine 1.89 H, Glucose 94, Total Bilirubin 1.5 H, AST 47 H, ALT 26, Alkaline Phosphatase 247 H 08/27/21 21:15: WBC 2.40 L, Hgb 14.1, Hct 41.3, Plt Count 148 L 08/27/21 21:15: Sodium 139, Potassium 3.4 L, BUN 18, Creatinine 1.88 H, Glucose 99 - Problems (1) Shock Current Visit: Yes Status: Acute Plan: Patient is 71 years of age admitted with severe hypotension presumed septic patient has bandemia acute renal failure elevated lactic acid blood cultures are positive for gram-negative rods patient is on Zosyn and vancomycin continue with fluid boluses and Levophed
--- NOTE | 2021-08-28 11:50 | RAD REPORT ---
EXAM DESCRIPTION: US - Abdomen Exam Complete - 08/28/2021 11:42 am CLINICAL HISTORY: Abdominal pain COMPARISON: Extrem Venous W Compress Wil dated 01/07/2021olon Barium Enema dated 12/27/2019 FINDINGS: No aortic aneurysm. Increased echotexture of the liver The portal vein is patent. The IVC at the level of the liver is unremarkable. No ascites. The gallbladder is distended. Mild sludge is present. No pericholecystic fluid, wall thickening, or g allstones identified. No biliary ductal dilatation. The pancreas was grossly unremarkable. The right kidney measures 10.4 cm normal echotexture. No hydronephrosis. No suspicious masses. The left kidney measures 10.4 cm with a normal echotexture. No hydronephrosis. No suspicious masses. The spleen is unremarkable. IMPRESSION: Hepatic steatosis. Negative for cholelithiasis or sonographic evidence of acute cholecys titis.
[2021-08-28] MEDS: NA CHLORIDE 0.9% 1,000 ML IV SCH ×2 (12:19→18:59)
[2021-08-28] MEDS ORDERED: NOREPINEPHRINE 4 MG in D5W 250 ML IV SCH (12:19)
[2021-08-28] MEDS ORDERED: VANCOMYCIN 1 GM in NA CHLORIDE 0.9% 250 ML IVPB SCH (12:19)
[2021-08-28] MEDS ORDERED: ONDANSETRON 4 MG/2 ML VIAL IV PRN (12:19)
[2021-08-28] MEDS: D5 0.45 NS 1,000 ML IV SCH ×2 (12:19→20:19)
[2021-08-28] MEDS ORDERED: NA CHLORIDE 0.9% 250 ML ONE (12:29)
[2021-08-28] MEDS ORDERED: PIPERACIL/TAZO 3.375 GM VIAL IV ONE ×2 (12:29→23:45)
[2021-08-28] MEDS ORDERED: VANCOMYCIN 1 GM/VIAL ONE (12:29)
[2021-08-28] MEDS ORDERED: NA CHLORIDE 0.9% 100 ML IV ONE ×2 (12:30→23:45)
[2021-08-28] MEDS ORDERED: D5 0.45 NS 1,000 ML IV ONE ×2 (12:30→19:32)
[2021-08-28] MEDS ORDERED: PIPER TAZO 3.375 GM in NA CHLORIDE 0.9% 100 ML IV SCH (12:45)
[2021-08-28] MEDS: VANCOMYCIN 2.5 GM in NA CHLORIDE 0.9% 500 ML IVPB ONE ×2 (13:00→14:00)
[2021-08-28] MEDS ORDERED: VASOPRESSIN 80 UNIT in NA CHLORIDE 0.9% 250 ML IV PRN (13:07)
--- NOTE | 2021-08-28 21:06 | RAD REPORT ---
EXAM DESCRIPTION: CT - Head C Spine Cap Wo Con - 08/28/2021 4:59 am CLINICAL HISTORY: 71 years Male AMS; Pain TECHNIQUE: Trauma CT head, cervical spine, chest, abdomen, pelvis protocol without intravenous contr ast. Coronal and sagittal reformats were performed. All CT scans at this facility use dose modulation , iterative reconstruction, and/or weight based dosing when appropriate to reduce radiation dose to a s low as reasonably achievable. COMPARISON: None. FINDINGS: HEAD: Brain: Parenchymal volume loss. No intracranial hemorrhage or midline shift. Left middle cranial johanny a arachnoid cyst measuring 3.3 x 2.3 cm. No obvious large acute territorial infarction. Ventricles: No hydrocephalus. Orbits: Unremarkable. Sinus: Visualized portions are clear. Mastoid: clear Osseous: Unremarkable. Soft tissues: Unremarkable. CERVICAL SPINE: Vertebra: No acute fracture. Degenerative change: Multilevel degenerative changes. No high grade spinal canal stenosis. Alignment: Straightening of the normal cervical lordosis without spondylolisthesis. Soft tissues: Unremarkable. Lungs: Visualized lung apices are clear. CHEST: Lungs: Minimal bibasilar dependent atelectasis. No focal consolidation. Pleura: Small right pleural effusion. No pneumothorax. Mediastinum: No mediastinal mass or adenopathy. No pericardial effusion. Atherosclerosis of the coron nikos arteries. Distention of the thoracic esophagus with air-fluid level with thickening of the gastro esophageal junction. Vascular: Grossly unremarkable. Bones: Unremarkable. Soft tissues: Unremarkable ABDOMEN/PELVIS: Liver: Unremarkable. Gallbladder: Distended with mild gallbladder wall thickening. No visualized calcified stone. Pancreas: Within normal limits. Spleen: Within normal limits. Kidney: No stone or hydronephrosis. Nonspecific mild bilateral perinephric stranding. Adrenal glands: Within normal limits. Vascular structures: Unremarkable. Bowel: Postsurgical changes in the stomach. No bowel distention. Appendix: Normal. Peritoneum/retroperitoneum: No free fluid or free air. Lymph Nodes: No lymphadenopathy. Reproductive: Prostate is enlarged. Urinary bladder: Unremarkable. Osseous structures: Unremarkable. Soft tissues: Unremarkable. IMPRESSION: Head: 1. No acute intracranial findings. 2. A 3.3 cm left middle cranial fossa arachnoid cyst. Cervical spine: 1. No acute cervical spine spine pathology. 2. Multilevel degenerative changes. Chest: 1. Thickening at the level of the gastroesophageal junction with distention of the thoracic esophagus with air-fluid level. Patient at risk for aspiration. Recommend upper GI series for further evaluati on. 2. Small right pleural effusion. 3. Atherosclerosis of the coronary arteries. Abdomen of and pelvis: 1. Distention of the gallbladder with mild gallbladder wall thickening. No visualized calcified stone . Recommend right upper quadrant sonogram for further evaluation. 2. Prostatomegaly. Electronically signed by: Flip Gordon MD 08/28/2021 3:49 AM CDT Due to temporary technical issues with the PACS/Fluency reporting system, reports are being signed by the in house radiologists without review as a courtesy to insure prompt reporting. The interpreting radiologist is fully responsible for the content of the report.
[2021-08-28] MEDS ORDERED: ONDANSETRON 4 MG/2 ML VIAL ONE (23:44)
--- NOTE | 2021-08-28 23:44 | P.CNS ---
Date of Consult: 08/28/21 PC: 71-year-old male presents emergency room with abdominal pain HPC: He apparently has been having some weakness at home as well as some falls recently.. Is also noticed he has some abdominal pain. Social Hx: No known allergies next Sys R: Denies any cough, abdominal pain or urinary complaints O/E: Awake alert HEENT: Nonicteric Chest: Chest movement equal bilaterally Abd: Mild right upper quadrant tenderness [place]: Intact Data: CT scan shows a markedly distended gallbladder with some pericystic fluid. Ultrasound shows some small stones. Impression: Patient currently been stabilized, but symptoms suggestive associated biliary colic Plan: We will follow as patient is medically stabilized.
[2021-08-28] MEDS: PIPER TAZO 3.375 GM in NA CHLORIDE 0.9% 100 ML IV SCH (23:49)
[2021-08-29 00:01] VITALS: BP 115/103
[2021-08-29] MEDS ORDERED: LORazepam 2 MG/ML VIAL IV PRN (00:30)
[2021-08-29] MEDS ORDERED: FENTANYL CITR 100 MCG/2 ML IV PRN (00:30)
[2021-08-29] MEDS ORDERED: MIDAZOLAM HCL 2 MG/2 ML INJ IV PRN (00:30)
[2021-08-29] MEDS ORDERED: NA CHLORIDE 0.9% 250 ML IV PRN (00:30)
[2021-08-29] MEDS ORDERED: HYDROMORPHONE HCL 2 MG/ML inj IV PRN ×2 (00:33→15:59)
[2021-08-29] MEDS ORDERED: RSI MEDICATION KIT IV ONE (00:35)
[2021-08-29] MEDS ORDERED: METHYLPREDNISOLONE 125 MG INJ ONE (00:36)
[2021-08-29 00:48] LABS: Arterial Blood Carboxyhemoglob 0.4 % (0-1.5); Blood Gas Oxyhemoglobin 96.5 % (94-97); Blood O2 Saturation 97.6 % (92-98.5)
[2021-08-29] MEDS ORDERED: HYDROCORTISONE NA SUC 200 MG in NA CHLORIDE 0.9% 100 ML IV STA (00:48)
[2021-08-29] MEDS: D5W 1,000 ML with NA BICARB 8.4% 150 MEQ IV SCH ×4 (01:00→08:40)
[2021-08-29] MEDS ORDERED: NOREPINEPHRINE 4mg/D5W 250mL 4 MG/250 ML BAG IV ONE (01:45)
[2021-08-29] MEDS ORDERED: VASOPRESSIN 20 UNIT/ML VIAL ONE ×2 (01:46→03:36)
[2021-08-29] MEDS ORDERED: SODIUM BICARB 50 MEQ/50ML VIAL ONE ×3 (01:53→01:57)
[2021-08-29] MEDS ORDERED: D5W 1,000 ML IV ONE (01:56)
[2021-08-29] MEDS ORDERED: NA CHLORIDE 0.9% 250 ML ONE (02:24)
[2021-08-29] MEDS ORDERED: HYDROMORPHONE HCL 2 MG/ML inj ONE ×3 (02:43→16:07)
[2021-08-29] MEDS: HALOPERIDOL LACT 5 MG/ML INJ IV PRN ×4 (03:34→14:44)
[2021-08-29 04:59] LABS: Absolute Lymphocytes (CBC) 0.4 K/uL (0.7-4.9); Hematocrit 39.7 % (39.6-49.0); Lymphocytes % 1.6 % (15.3-44.8); MPV 8.4 fL (7.6-11.3); RBC Red Blood Cell Count 4.34 M/uL (4.33-5.43)
[2021-08-29 05:18] LABS: Albumin 2.4 g/dL (3.4-5.0); Bilirubin Total 0.8 mg/dL (0.2-1.0); Potassium 3.8 mmol/L (3.5-5.1); Protein, Total 6.3 g/dL (6.4-8.2)
[2021-08-29] MEDS ORDERED: HALOPERIDOL LACT 5 MG/ML INJ ONE ×4 (07:40→14:41)
[2021-08-29 08:29] VITALS: BMI 32.0
[2021-08-29] MEDS: PIPER TAZO 3.375 GM in NA CHLORIDE 0.9% 100 ML IV SCH (08:50)
[2021-08-29] MEDS ORDERED: FAMOTIDINE 20 MG/2 ML VIAL IV SCH (09:00)
--- NOTE | 2021-08-29 09:29 | RAD REPORT ---
EXAM DESCRIPTION: RAD - Chest Single View - 08/29/2021 8:46 am CLINICAL HISTORY: resp failure COMPARISON: Portable 08/27/2021, two view chest 10/03/2012 TECHNIQUE: AP portable chest image was obtained 08/29/2021 8:46 am . FINDINGS: Exam is limited. Patient a shallow inspiration. Large body habitus further limits the stud y. Aerated portions of the lung myers show no mass or consolidation. No significant pulmonary edema finding seen. Right hemidiaphragm elevation has been previously seen. Cardiomediastinal silhouette wi thin normal range for exam limitation. No pneumothorax is seen. No large pleural effusions suspected. No acute bony abnormality seen. No acute aortic findings suspected. IMPRESSION: Exam has significant limitation. No significant failure, volume overload or focal lung p arenchymal process seen.
[2021-08-29 09:40] LABS: Blood Morphology Comment NOT SEEN (NOT SEEN); Dohle Bodies PRESENT; Platelet Estimate ADEQ
[2021-08-29] MEDS ORDERED: metroNIDAZOLE 500 MG TABLET PO SCH (12:00)
[2021-08-29] MEDS ORDERED: LORazepam 2 MG/ML VIAL ONE ×3 (12:02→16:08)
[2021-08-29] MEDS: LORazepam 2 MG/ML VIAL IV PRN ×2 (12:07→13:35)
--- NOTE | 2021-08-29 15:41 | P.PN ---
Subjective Date of Service: 08/29/21 Chief Complaint: FALLEN A FEW TIMES. FEVER. Subjective: Worsening IT TOOK MANY MEDS AND IV STEROIDS TO REVIVE HIS BP. TODAY HE IS BREATHING RAPIDLY, HE IS OBTUNDED, LETHARGIC. Review of Systems General: Weakness Respiratory: Shortness of Breath, As per HPI Physical Examination - Vital Signs Blood Pressure: 115/103 Pulse: 73 Respirations: 26 Pulse Ox (%): 91 - Physical Exam General: Moderate distress, Confused, Delirious, Obese Neck: 2+ carotid pulse no bruit Respiratory: Diminished (RAPID) Cardiovascular: No edema Gastrointestinal: Normal bowel sounds, Non-distended Neurological: Other ( ABOVE OBTUNDED, CONFUSED, THRASHES AGITATED, SEVERELY RESTLESS, NOT ABLE TO COMMUNICATE) - Studies Microbiology Data (last 24 hrs): 08/27/21 21:28 Blood - Blood Anaerobic Blood Culture - Final Assessment And Plan - Current Problems (Diagnosis) (1) Septic shock Current Visit: Yes Status: Acute Plan: DESPITE VANCOMYCIN, ZOSYN AND FLAGYL SEPSIS IS NOT IMPROVING. SOURCE IN UNCLEAR. SO FAR CT SHOWED THICK GB BU SONOGRAM RULED OUT. HE TERMINAL. HE IS RAPIDLY GETTING WORSE. I ADVISED HOSPICE AND FAMILY AGREED. THIS WAY WE WILL BE ABLE TO STOP ALL THE MEDS THAT ARE NOT WORKING AND CONTINUE ONLY COMFORT MEDS.
--- NOTE | 2021-08-29 15:44 | P.DS ---
Admission Date: 08/28/21 Discharge Date: 08/29/21 Disposition: HOSPICE-MEDICAL FACILITY Discharge Condition: SERIOUS Reason for Admission: FALLEN A FEW TIMES. FEVER. 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 HE HAS NO PAIN. HE HAS SOME NAUSEA. Hospital Course: DESPITE VANCOMYCIN, ZOSYN AND FLAGYL SEPSIS IS NOT IMPROVING. SOURCE IN UNCLEAR. SO FAR CT SHOWED THICK GB BU SONOGRAM RULED OUT. HE TERMINAL. HE IS RAPIDLY GETTING WORSE. I ADVISED HOSPICE AND FAMILY AGREED. THIS WAY WE WILL BE ABLE TO STOP ALL THE MEDS THAT ARE NOT WORKING AND CONTINUE ONLY COMFORT MEDS. PATIENT WILL NOW HAVE A SEPARATE CHART FOR HOSPICE. Vital Signs/Physical Exam: Temp Pulse Resp BP Pulse Ox 73 26 H 115/103 H 91 08/29/21 15:41 08/29/21 15:41 08/29/21 15:41 08/29/21 15:41 Laboratory Data at Discharge: WBC 25.80 K/uL (4.3-10.9) H* D 08/29/21 04:49 Hgb 13.2 g/dL (13.6-17.9) L 08/29/21 04:49 Hct 39.7 % (39.6-49.0) 08/29/21 04:49 Plt Count 114 K/uL (152-406) L D 08/29/21 04:49 PT 16.9 SECONDS (9.5-12.5) H 08/27/21 21:22 INR 1.52 08/27/21 21:22 APTT 31.8 SECONDS (24.3-36.9) 08/27/21 21:22 Sodium 141 mmol/L (136-145) 08/29/21 04:49 Potassium 3.8 mmol/L (3.5-5.1) 08/29/21 04:49 BUN 27 mg/dL (7-18) H 08/29/21 04:49 Creatinine 1.95 mg/dL (0.55-1.3) H 08/29/21 04:49 Glucose 121 mg/dL (74-106) H 08/29/21 04:49 Total Bilirubin 0.8 mg/dL (0.2-1.0) 08/29/21 04:49 AST 219 U/L (15-37) H D 08/29/21 04:49 ALT 103 U/L (12-78) H 08/29/21 04:49 Alkaline Phosphatase 151 U/L (45-117) H 08/29/21 04:49 Followup: Isaac Starkey MD [Primary Care Provider] -
[2021-08-29] MEDS ORDERED: ONDANSETRON 4 MG/2 ML VIAL ONE (16:07)
[2021-08-29 16:12] VITALS: TEMP 99.4
[2021-08-29 17:23] VITALS: O2SAT 96
[2021-08-30] MEDS ORDERED: VANCOMYCIN 1.75 GM in NA CHLORIDE 0.9% 500 ML IVPB SCH (02:00)
--- NOTE | 2021-08-30 08:25 | EKG ---
Test Date: 2021-08-27 Test Time: 21:03:19 Dobby Loom Weaver: ARNOL MEASUREMENT RESULTS: Intervals: Rate: 99 IL: 164 QRSD: 82 QT: 318 QTc: 408 [place]: P: 31 IL: 164 QRS: 6 T: 33 INTERPRETIVE STATEMENTS: Normal sinus rhythm Normal ECG Compared to ECG 09/28/2004 09:58:00 No significant changes Electronically Signed On 08-30-21 08:21:08 CDT by Bennie Ortez
[2021-09-01] MEDS ORDERED: SCOPOLAMINE HYDROBROMIDE PATCH TD SCH (09:00)
== END 2021-08-29 15:50 | disposition hospice, inpatient (51) | DRG 871 ==
LOC: ER 20:43 → ERHOLD 08-28 04:14
PROVIDERS: ADMIT Internal Medicine; ATTEND Internal Medicine
DX: A41.9 Sepsis, unspecified organism (principal); R65.21 Severe sepsis with septic shock; N17.9 Acute kidney failure, unspecified; I10 Essential (primary) hypertension; E66.9 Obesity, unspecified; Z68.31 Body mass index [BMI] 31.0-31.9, adult; R41.0 Disorientation, unspecified; K21.9 Gastro-esophageal reflux disease without esophagitis; Z20.822 Contact with and (suspected) exposure to COVID-19
CPT/HCPCS: 0240U; 36415; 70450; 71045; 71250; 72125; 76700; 80048; 80053; 81003; 81015; 82805; 82947; 83605; 84484; 85025; 85610; 85730; 87040; 87077; 87086; 87088; 87186; 87205; 93005; 99291; 99292; J1170; J1630; J2405; J2543; J2930; J3370; J7030; J7040; J7050; J7060; J7799

== ENCOUNTER 2021-08-29 15:49 | Inpatient (IN) | payer BC, OTHER ==
--- OUTSIDE RECORDS SUMMARY | 2021-08-29 16:09 | XMS REPORT | Continuity of Care Document ---
:1950 Author Organization [facility] t Address [address] [place] [address] Care Team Providers Name Role Phone JENNYFER [...] Formattin ity of 00:00: g of this [place] 00 note Medical might be Branch different from the original. 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 ICD10 Diagnosis Term Flight Control Manager Utility Essential Essential Disease Active Overview: Univers hypertensi hypertensi 18 Formattin ity of on on 00:00: g of this [place] 00 note Medical might be Branch different from the original. 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 00:00:00 00:00:00 Medical Branch Smoking Status Start Date Stop Date Source Unknown if ever smoked [facility] Medical [place] Medications Ordered Filled Start Stop Current Ordering Indication Dosage Frequency Signature Comments Components Source Medication Medication Date Date Medication? Clinician (SIG) Name Name tamsulosin 2020-06 Yes [id number] .4mg Take 1 Univers 0.4 mg 24 06-22 capsule by ity of hr capsule 00:00: mouth at [place] 00 bedtime. Medical Branch tamsulosin 2020-06 Yes [id number] .4mg Take 1 Univers 0.4 mg 24 06-22 capsule by ity of hr capsule 00:00: mouth at [place] 00 bedtime. Medical Branch tamsulosin Yes [id number] .4mg Take 1 Univers 0.4 mg 24 -05 12 capsule by ity of hr capsule 00:00: mouth [place] 00 daily. Medical Branch tamsulosin Yes [id number] .4mg Take 1 Univers 0.4 mg 24 10-21 capsule by ity of hr capsule 00:00: mouth [place] 00 daily. Medical Branch ACIPHEX Yes None Univers ORAL 2-08 Entered ity of 15:25: [place] [address] Medical Branch LEXAPRO Yes None Univers ORAL 2-08 Entered ity of 15:25: [place] [address] Medical Branch ALPRAZolam Yes .5mg Take 0.5 Uni vers 0.5 mg 2-08 mg by ity of tablet 15:25: mouth. [place] [address] Medical Branch desvenlafax Yes Take by Un ryan ine 2-08 mouth. ity of succinate 15:25: [place] 50 mg 24 hr 16 Medical tablet Branch lithium Yes 300mg Take 300 Unive rs carbonate 2-08 mg by ity of 300 mg 15:25: mouth. [place] [address] Medical Branch memantine Yes 10mg Take 10 mg Un ryan 10 mg 2-08 by mouth. ity of tablet 15:25: [place] [address] Medical Branch ACIPHEX Yes None Univers ORAL 2-08 Entered ity of 15:25: [place] [address] Medical Branch LEXAPRO Yes None Univers ORAL 2-08 Entered ity of 15:25: [place] [address] Medical Branch ALPRAZolam Yes .5mg Take 0.5 Uni vers 0.5 mg 2-08 mg by ity of tablet 15:25: mouth. [place] [address] Medical Branch desvenlafax Yes Take by Un ryan ine 2-08 mouth. ity of succinate 15:25: [place] 50 mg 24 hr 16 Medical tablet Branch lithium Yes 300mg Take 300 Unive rs carbonate 2-08 mg by ity of 300 mg 15:25: mouth. [facility] 16 Medical Branch memantine Yes 10mg Take 10 mg Un ryan 10 mg 2-08 by mouth. ity of tablet 15:25: 16 Medical Branch tamsulosin Yes [id number] .4mg Take 1 Univers 0.4 mg 24 2-08 capsule by ity of hr capsule 00:00: mouth at [place] 00 bedtime. Medical Branch tamsulosin Yes [id number] .4mg Take 1 Univers 0.4 mg 24 2-08 capsule by ity of hr capsule 00:00: mouth at [place] 00 bedtime. Medical Branch tamsulosin 2019- Yes [id number] .4mg Take 1 Univers 0.4 mg 24 2-28 01 capsule by ity of hr capsule 00:00: mouth [place] 00 daily. Medical Branch SYNTHROID 2019- Yes Univers 25 mcg 2-28 ity of tablet 00:00: 00 Medical Branch atorvastati 2019- Yes Univer s n 20 mg 2-28 ity of tablet 00:00: Medical Branch tamsulosin 2019- Yes [id number] .4mg Take 1 Univers 0.4 mg 24 [...] 19:20:00 143 mm[Hg] Univer sity of pressure [facility] Diastolic blood 2021-04-21 19:20:00 88 mm[Hg] [facility] 2021-04-21 19:20:00 68 /min [facility] Body temperature 2021-04-21 19:19:00 36 [place]ke [facility] Respiratory rate 2021-04-21 19:19:00 16 /min [facility] Body weight 2021-04-21 19:19:00 108.954 kg [facility] BMI 2021-04-21 19:19:00 36.52 kg/m2 [facility] Oxygen saturation in 2021-04-21 19:19:00 99 /min [facility] Arterial blood by [facility] [place] [facility] Pulse oximetry Branch Procedures Procedure Date / Time Performed Performing Clinician Sourc e POCT URINALYSIS AUTO 2021-04-21 19:22:00 Barby Garsia [facility] PATIENT QUESTIONNAIRE 2021-04-21 06:01:00 Doctor Unassigned, No [facility] Encounters Start End Encounter Admission Attending Care Care Encounter Source Date/Time Date/Time Type Type Clinicians Facility Department ID 2021-10-20 2021-10-20 Outpatient R ADY [facility] [id number] Univers 10:30:00 10:30:00 BARBY [id number] [facility] 2021-10-18 2021-10-18 Outpatient R AMERICA [facility] [id number] Univers 14:00:00 14:00:00 CAR [id number] [facility] 2021-04-21 2021-04-21 Office Gramm, [facility] [id number] Univers 12:54:40 13:39:26 Visit Barby QUEZADA [id number] ity of [place] [id number] [place] [phone] Md dical NAL 204 Branch BUILDING 2021-04-21 2021-04-21 Orders Doctor ARIE [id number] Univers 00:00:00 00:00:00 Only Unassigned, RED [id number] ity of [place] [facility] [id number] [place] as [phone] [facility] 009 [place] Results Test Description Test Time Test Comments [...] 3267) Clear Lab Interpretation (test code = 14397-0) Normal [facility]
--- NOTE | 2021-08-29 16:14 | P.SSS ---
Patient History Date of Service: 08/29/21 Reason for admission: END STAGE SEPSIS History of Present Illness: MR ARREDONDO FAILED TO SHOW ANY IMPROVEMENT WITH ZOSYN, VANCOMYCIN, FLAGYL, LEVOPHED, STEROIDS ETC OVER LAST 24 HOURS. HE IS DYING FROM SEPSIS OF UNKNOWN ORIGIN. FAMILY THAT IS IS VERY CONTENT AND WANTS HIM COMFORTABLE. HE IS A DECONDITIONED PATIENT WITH CHRONIC PSYCH ISSUES. 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 Allergies No Known Allergies Allergy (Unverified 08/28/21 12:17) Home medications list reviewed: Yes - Past Medical/Surgical History -: Hypertension Review of Systems General: Weakness, Malaise, As per HPI Neurological: Confusion (AGITATED THRASHING.) Physical Examination - Physical Exam General: Severe distress, Delirious, Unresponsive, Obese Respiratory: Diminished (RAPID BREATHING.) Cardiovascular: Irregular heart rate/rhythm - Diagnosis (Problem(s)) (1) Septic shock Current Visit: No Status: Acute Plan: SEPTIC SHOCK. FAILED THERAPY RAPIDLY WORSENING. HE IS NOW ON HOSPICE WE CAN STOP ALL EXTENSIVE THERAPY AND CONTINUE ONLY COMFORT CARE. TALKED TO IN DETAIL AND SHE AGREES. HE IS NOT IN CONDITION TO DECIDE ON HIS OWN. - Disposition Disposition: ROUTINE DISCHARGE
[2021-08-29] MEDS ORDERED: ONDANSETRON 4 MG/2 ML VIAL IV PRN ×2 (17:04→18:00)
[2021-08-29] MEDS ORDERED: HYDROMORPHONE HCL 2 MG/ML inj IV PRN ×2 (17:05→18:00)
[2021-08-29] MEDS ORDERED: LORazepam 2 MG/ML VIAL IV PRN (17:06)
[2021-08-29] MEDS: LORazepam 2 MG/ML VIAL IV PRN ×2 (17:52→20:02)
[2021-08-29] MEDS ORDERED: LORazepam 2 MG/ML VIAL ONE ×4 (17:53→23:56)
[2021-08-29] MEDS ORDERED: HYDROMORPHONE HCL 2 MG/ML inj ONE ×2 (18:47→21:25)
[2021-08-29] MEDS ORDERED: ONDANSETRON 4 MG/2 ML VIAL ONE (21:25)
[2021-08-29] MEDS: HYDROMORPHONE HCL 2 MG/ML inj IV SCH (22:06)
[2021-08-29] MEDS: ONDANSETRON 4 MG/2 ML VIAL IV SCH (22:06)
[2021-08-29] MEDS: LORazepam 2 MG/ML VIAL IV SCH ×2 (22:07→23:53)
[2021-08-30] MEDS: HYDROMORPHONE HCL 2 MG/ML inj IV SCH ×8 (00:27→21:59)
[2021-08-30] MEDS ORDERED: HYDROMORPHONE HCL 2 MG/ML inj ONE ×5 (00:27→12:08)
[2021-08-30 01:43] VITALS: BMI 38.0
[2021-08-30] MEDS: LORazepam 2 MG/ML VIAL IV SCH ×12 (01:59→21:59)
[2021-08-30] MEDS ORDERED: LORazepam 2 MG/ML VIAL ONE ×7 (02:01→13:30)
[2021-08-30] MEDS ORDERED: ONDANSETRON 4 MG/2 ML VIAL ONE ×2 (04:14→09:46)
[2021-08-30] MEDS: ONDANSETRON 4 MG/2 ML VIAL IV SCH ×4 (04:17→21:59)
[2021-08-30] MEDS ORDERED: SCOPOLAMINE HYDROBROMIDE PATCH TD ONE (05:29)
[2021-08-30 21:43] VITALS: BP 101/53; TEMP 97.2
--- NOTE | 2021-08-31 06:42 | P.PN ---
Subjective Date of Service: 08/30/21 Chief Complaint: END STAGE SEPSIS Subjective: Worsening FAMILY DECIDED TO WITHDRAW ALL THE CARE AND PUT HIM ON HOSPICE PER HIS WISH. HE DID NOT RECOVER DESPITE A STRONG COMBINATION OF ANTIBIOTICS FOR SEPSIS OF ABDOMEN ORIGIN POSSIBLY GALL BLADDER. HIS CONDITION WAS NEVER GOOD ENOUGH FOR EXPLORATORY SURGERY. HE IS COMATOSE NOW. Review of Systems is unable to be obtained Physical Examination - Vital Signs Temperature: 97.2 F Blood Pressure: 101/53 Pulse: 124 Respirations: 25 Pulse Ox (%): 71 - Physical Exam General: Comatose, Obese Respiratory: Other (RAPID SHALLOW BREATHING.) Assessment And Plan - Current Problems (Diagnosis) (1) Septic shock Status: Acute Plan: SEPTIC SHOCK. FAILED THERAPY RAPIDLY WORSENING. HE IS NOW ON HOSPICE WE CAN STOP ALL EXTENSIVE THERAPY AND CONTINUE ONLY COMFORT CARE. TALKED TO IN DETAIL AND SHE AGREES. HE IS NOT IN CONDITION TO DECIDE ON HIS OWN. TERMINAL AND MAY ANY MINUTE.
--- NOTE | 2021-08-31 06:43 | P.DS ---
Admission Date: 08/29/21 Discharge Date: 08/31/21 Disposition: Discharge Condition: Reason for Admission: END STAGE SEPSIS - Problems (1) Septic shock Status: Acute Brief History of Present Illness: MR ARREDONDO FAILED TO SHOW ANY IMPROVEMENT WITH ZOSYN, VANCOMYCIN, FLAGYL, LEVOPHED, STEROIDS ETC OVER LAST 24 HOURS. HE IS DYING FROM SEPSIS OF UNKNOWN ORIGIN. FAMILY THAT IS IS VERY CONTENT AND WANTS HIM COMFORTABLE. HE IS A DECONDITIONED PATIENT WITH CHRONIC PSYCH ISSUES. 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 Hospital Course: FAMILY DECIDED TO WITHDRAW ALL THE CARE AND PUT HIM ON HOSPICE PER HIS WISH. HE DID NOT RECOVER DESPITE A STRONG COMBINATION OF ANTIBIOTICS FOR SEPSIS OF ABDOMEN ORIGIN POSSIBLY GALL BLADDER. HIS CONDITION WAS NEVER GOOD ENOUGH FOR EXPLORATORY SURGERY. HE LAST NIGHT EXPECTED. FAMILY AT BEDSIDE AND VERY CONTENT THAT HE DID NOT SUFFER. Vital Signs/Physical Exam: Temp Pulse Resp BP Pulse Ox 97.2 F 124 H 25 H 101/53 L 71 L 08/31/21 06:41 08/31/21 06:41 08/31/21 06:41 08/31/21 06:41 08/31/21 06:41
[2021-09-01] MEDS ORDERED: SCOPOLAMINE HYDROBROMIDE PATCH TD SCH (09:00)
== END 2021-08-30 23:50 | disposition expired | DRG 951 ==
LOC: ERHOLD 15:49 → 4TH 08-30 13:49
PROVIDERS: ADMIT Internal Medicine; ATTEND Internal Medicine
DX: Z51.5 Encounter for palliative care (principal)
CPT/HCPCS: J1170; J2405